=== PATIENT | female | born 1940 | race Caucasian/White ===

== ENCOUNTER 2016-11-09 15:00 | Inpatient (IN) | payer MEDICARE, OTHER ==
--- NOTE | ~2016-11-09 | CT4 ---
[facility] A Service of [facility] RADIOLOGY TEXT RESULTS PATIENT: BUCK ORTIZ LOCATION: A : 42 UNIT #: [id number] AGE: [address]: Feliz Morales MD SEX: F ORDER DR: [id number] [facility] [place] [address] [facility]. [place], [place] [address] [id number] I MR#: [id number] Acc #: [id number] NAME: BUCK ORTIZ. : 1940 SEX: F STUDY DATE/TIME: 11/10/2016 11:32 UNIT: [facility] ROOM: [facility] STUDY DESCRIPTION: CT Abd and Pelv Wo Cont Attending Physician: Feliz Morales M.D. Ordering Physician: Saw Knight M.D. Primary Care Physician: Arnel Crockett M.D. 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 TECHNIQUE Noncontrast CT of the abdomen and pelvis. This CT exam was performed with one or more of the following radiation dose reduction techniques: automatic exposure control, adjustment of mA and/or kV according to patient size, and iterative reconstruction. COMPARISON 10/13/2016. FINDINGS ABDOMEN WITHOUT CONTRAST: There is some linear scarring at the lung bases. Cirrhotic morphology of the liver. No liver mass on this unenhanced study. Spleen enlarged measuring 13.7 cm. Previous right nephrectomy. Left kidney, adrenal glands and pancreas are unremarkable. Previous cholecystectomy. Aneurysmal dilation of the infrarenal abdominal aorta up to 4.6 cm is unchanged. The bowel loops are non-dilated. There is an ostomy in the right mid abdomen. There are several bowel loops closely opposed to the undersurface of the anterior abdominal wall. There is some thickening seen in the region of the umbilical soft tissues. This is thickened but less so than on the prior. No drainable fluid collection is seen. No clear evidence for extension of oral contrast material into this region. [facility] A Service of [facility] RADIOLOGY TEXT RESULTS PATIENT: BUCK OTRIZ LOCATION: [facility] 206-01 : 42 UNIT #: [id number] AGE: [address]: Feliz Morales MD SEX: F ORDER DR: PELVIS WITHOUT CONTRAST: Previous hysterectomy. Previous cystectomy. No pelvic collection. No aggressive appearing bone lesion. IMPRESSION 1. Postoperative changes as above. 2. Several bowel loops closely opposed to the undersurface of the abdominal wall, with a persistent but slightly improved area of thickening in the periumbilical soft tissues. This may represent an area of thinner continuous fistula, but there is no drainable fluid collection or visible extension of oral contrast material into this region. 3. Other incidental findings detailed above. Dictated by... Reyes Antonio M.D. THIS IS AN ELECTRONICALLY VERIFIED REPORT Reyes Antonio M.D. at 11/12/2016 6:59 AM JOHNSON/vernell TD: 11/10/2016 16:52 JOB #: [id number] MEDICAL IMAGING REPORT COPY
--- NOTE | ~2016-11-09 | CO ---
Unit #: [id number] #: [id number] Patient: BUCK PERAZA [id number] [address] [place], [place] [address] [id number] I MR#: [id number] NAME: BUCK PERAZA. ROOM: 206 Age: 76 Sex: F Admission Date: 11/09/2016 : 1940 Attending Physician: Feliz Morales M.D. Primary Care Physician: Arnel Crockett M.D. CONSULTATION REPORT REASON FOR CONSULTATION Increased creatinine, increased potassium. HISTORY OF PRESENT ILLNESS Ms. Peraza is a 76-year-old female, who presents to hospital with complaint of fever. She has had dry mouth and thirst. She has had dizziness when up. She denies nonsteroidal use. 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 She had a subsequent cutaneous fistula and had repair. She developed recent drainage from the area of the repair and presented to outpatient Urology follow up. She had imaging at that time showing no left hydronephrosis. She subsequently developed fever along with increased drainage and is admitted now with concern about her cutaneous fistula. General Surgery consultation has been obtained. She was noted to have an increased potassium of 5.7. Her bicarbonate was 19. She has had similar findings in the past and has been prescribed bicarbonate as initial studies have suggested a type 4 type renal tubular acidosis with low pneumonia in production. At this time also she had elevated creatinine of 1.8. Creatinine had been 1.2 on 10/15/2016. She has had acute kidney injury in the past as high as 1.6 in early 09/2016 with recovery to 1.2 and 2.4 in 05/2015 with recovery to 1.2 later that month. HOME MEDICATIONS Reviewed and do not include any typical nephrotoxins. She claims that she has been following her low-potassium diet and that she has been taking her sodium bicarbonate. PAST MEDICAL HISTORY Notable for the above noted cancer with right nephroureterectomy for transitional cell cancer. She has COPD; hypothyroidism, on replacement; and reported diet-controlled diabetes. There was a history of aortic aneurysm. SOCIAL HISTORY Includes past cigarette smoking. She is now nonsmoker. FAMILY HISTORY Positive for incompletely described kidney injury in her mother, who did not require dialysis. REVIEW OF SYSTEMS Complete system review is negative or noncontributory except as noted Unit #: [id number] #: [id number] Patient: LennoxEBALEXA,BUCK M above. Specifically, there has been no vomiting, no hematemesis. No increased shortness of breath, orthopnea, no purulent cough, and no increased lower extremity swelling. PHYSICAL EXAMINATION GENERAL: Reveals a pleasant, alert, minimally uncomfortable appearing female, who appeared stated age. VITAL SIGNS: Blood pressure 102/53, heart rate 82, respirations 18, temperature 98.6. HEENT: Conjunctivae were pink. There was no bloody nasal discharge. Oral mucous membranes were dry. NECK: Reveals no increased jugular venous pressure. No thyromegaly. Cervical and supraclavicular adenopathy was unremarkable. LUNGS: Reveal diminished air movement, but were clear. HEART: Revealed no rub or S3. ABDOMEN: Soft, nontender. She had an ileal diversion draining clear yellow urine on the right side. The current fistula requiring additional evaluation and attention. : Included no CVA tenderness or bladder distention, was of course absent. EXTREMITIES: Revealed no increased pretibial edema. No unusual muscle tenderness. DIAGNOSTIC STUDIES LABORATORY RESULTS: Included a white count of 4700, hemoglobin 11.9, and platelet count 179,000. BUN was 28, creatinine 1.8, potassium 5.7, CO2 of 19, calcium 8.7; after bicarbonate treatment overnight, potassium was 4.4 today. ASSESSMENT 1. 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 2. Acute kidney injury. She appears volume depleted possibly from additional losses and possibly not taking p.o. well. She denies nonsteroidal use. Review of home medicines discloses no typical nephrotoxins. Urine, well-appearing dirty from ostomy in that is not reliable for diagnosis. Noted is reported use of Macrobid; would avoid that in future for GFR less than 60. 3. Chronic kidney disease, status post right nephrectomy for cancer. 4. Ileal conduit. 5. Hyperkalemia. 6. 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 PLAN Current recs with IV fluids for volume expansion, bicarbonate, and dietary potassium restriction. CT is planned; if that does not adequately exclude incomplete obstruction and creatinine is not moving to normal with volume resuscitation, we will request additional imaging with kidney ultrasound. Thank you for allowing me to see Ms. Peraza. Dictated by... Ely Flores/modl TD: 11/10/2016 19:09 Unit #: [id number] #: [id number] Patient: BUCK PERAZA JOB #: [id number] CONSULTATION REPORT X Rolando Starks MD X CONSULTATION REPORT
--- NOTE | ~2016-11-09 | HP ---
Unit #: [id number] #: [id number] Patient: BUCK PERAZA [id number] [address] [place], [place] [address] [id number] I MR#: [id number] NAME: BUCK PERAZA. ROOM: 206 Age: 76 Sex: F Admission Date: 11/09/2016 : 1940 Attending Physician: Feliz Morales M.D. Primary Care Physician: Arnel Crockett M.D. HISTORY AND PHYSICAL ADMITTING DIAGNOSES 1. Fever status post simple cystectomy and ileal conduit. 2. Possible enterocutaneous fistula. HISTORY OF PRESENT ILLNESS Ms. Peraza is a pleasant 76-year-old female who originally underwent a right nephroureterectomy for upper tract transitional cell carcinoma. She subsequently developed a vesicovaginal fistula. She underwent a transvaginal repair with a Martius flap in February of 2016, but she had a recurrent fistula. She subsequently underwent a simple cystectomy and ileal conduit urinary diversion in September of 2015. Postoperatively she did develop a delayed wound infection, which was managed by wet-to-dry dressings. She presented to my office last week with increased drainage from her wound. She underwent a CT of the abdomen and pelvis in my office on 11/07/2016, which shows no left hydronephrosis, a lower abdominal ventral hernia, which is nonobstructing, including loops of small bowel. She presented to the office today with a 2- to 3-day history of fever and malaise. On exam of her wound, there is persistent output, and I am concerned about a fistula, as well. She, also, has had a cough. PAST MEDICAL HISTORY 1. Right upper tract transitional cell carcinoma. 2. Asthma. 3. Osteoarthritis. 4. Abdominal aortic aneurysm. 5. Hypothyroidism. 6. Hyperlipidemia. 7. Type 2 diabetes mellitus. 8. Nonalcoholic steatohepatitis. PAST SURGICAL HISTORY 1. Simple cystectomy, ileal conduit. 2. Right nephroureterectomy. 3. Vesicovaginal fistula repair with Martius flap. 4. Right ureteroscopy. 5. Cholecystectomy. 6. Partial thyroidectomy. 7. Oophorectomy. 8. Appendectomy. 9. Liver biopsy. 10. EGD. MEDICATIONS Documented in the chart. Unit #: [id number] #: [id number] Patient: UEBBUCK LIU M ALLERGIES Keflex, latex, penicillin and sulfa. PHYSICAL EXAMINATION VITAL SIGNS: Temperature is 102.1, blood pressure in my office 89/63. HEENT: Normocephalic, atraumatic. LUNGS: The patient is breathing comfortably. ABDOMEN: Soft, nontender, nondistended. Her urostomy is pink, patent and productive with clear urine. Her lower midline incision has a very small opening with green drainage and mucosal tissue, which I am concerned may be consistent with an enterocutaneous fistula. EXTREMITIES: No clubbing, cyanosis or edema. ASSESSMENT AND PLAN Fever. She will be admitted. Blood and urine cultures will be obtained. Will start her on IV antibiotics. We will check a chest x-ray. We will consult general surgery to evaluate for possible fistula. We appreciate the opportunity to participate in her care. Dictated by Ely Linder/melissa TD: 11/09/2016 15:02 JOB #: [id number] HISTORY AND PHYSICAL X Feliz Morales MD X HISTORY AND PHYSICAL
--- NOTE | ~2016-11-09 | CR8 ---
[facility] A Service of [facility] RADIOLOGY TEXT RESULTS PATIENT: BUCK ORTIZ LOCATION: C2A : 42 UNIT #: [id number] AGE: [address]: Feliz Morales MD SEX: F ORDER DR: [id number] [facility] [address] [facility]. [place], [place] [address] [id number] I MR#: [id number] Acc #: [id number] NAME: BUKC ORTIZ. : 1940 SEX: F STUDY DATE/TIME: 11/12/2016 9:03 UNIT: [facility] ROOM: [facility] STUDY DESCRIPTION: CR Abscess Fist Sin Tract SI Attending Physician: Feliz Morales M.D. Ordering Physician: Feliz Morales M.D. Primary Care Physician: Arnel Crockett M.D. MEDICAL IMAGING REPORT This report is preliminary unless electronic signature is present EXAM Sinus tract injection 11/12 INDICATIONS Draining midline abdominal wound. Prior history of multiple abdominal surgeries. History of renal cell cancer. PROCEDURE The small sinus tract in the midline of the anterior pelvis was cannulated using a 4-Dominican catheter. It was then injected with Isovue-300 contrast. The catheter could be advanced approximately 6 cm deep to the skin. Contrast injection did fill a small slightly irregular cavity around the catheter but did not appear to spill out into the pelvis proper or the fill out any bowel loops. Attempts at injecting additional contrast resulted in drainage from the skin. IMPRESSION Injection of the sinus tract shows filling of a cavity about 6 cm deep. It is fairly small and slightly irregular. It does not appear to communicate with bowel at this time and there is no spillage of contrast into the pelvis proper. ADDENDUM Fluoro time is 1.7 minutes. Five images were obtained. Dictated by... Rolando Stephenson Jr., M.D. THIS IS AN ELECTRONICALLY VERIFIED REPORT Rolando Stephenson Jr., M.D. at 11/12/2016 12:30 PM RLK/valeria TD: 11/12/2016 12:20 [facility] A Service of [facility] RADIOLOGY TEXT RESULTS PATIENT: BCUK ORTIZ LOCATION: [facility] 206-01 : 42 UNIT #: [id number] AGE: [address]: Feliz Morales MD SEX: F ORDER DR: JOB #: [id number] MEDICAL IMAGING REPORT COPY
--- NOTE | ~2016-11-09 | CO ---
Unit #: [id number] #: [id number] Patient: BUCK ORTIZ [id number] [address] [place], [place] [address] [id number] I MR#: [id number] NAME: BUCK ORTIZ ROOM: 206 Age: 76 Sex: F Admission Date: 11/09/2016 : 1940 Attending Physician: Feliz Morales M.D. Primary Care Physician: Arnel Crockett M.D. Consultation Date: 11/10/2016 CONSULTATION REPORT BRIEF HISTORY The patient is a 76-year-old lady with a complex surgical history, who underwent right nephroureterectomy for upper tract transitional cell carcinoma. Subsequently, developed a vesicovaginal fistula, underwent transvaginal repair back in February,. Underwent simple cystectomy in September,, with ileal conduit diversion. The second week after surgery, she developed drainage in the inferior portion of the wound. This was treated with wet-to-dry dressings, but subsequently debrided again. She now presents with 2 to 3 day history of fevers and persistent bilious type drainage from her lower abdominal wound. PAST MEDICAL HISTORY Hypothyroidism, hyperlipidemia, diabetes, asthma. PAST SURGICAL HISTORY As mentioned, in addition to a cholecystectomy, oophorectomy, appendectomy. MEDICATIONS Please see medication list. ALLERGIES Keflex, latex, penicillin, sulfa. REVIEW OF SYSTEMS No cardiopulmonary complaints at this time. Else, 10 systems reviewed and negative. PHYSICAL EXAMINATION GENERAL: She is awake and alert, in no distress. VITAL SIGNS: Current temperature is 100.1. HEENT: Unremarkable. NECK: Supple. No JVD. Trachea midline. LUNGS: Clear to auscultation. Bilateral breath sounds symmetric. CARDIOVASCULAR: Regular rate and rhythm. ABDOMEN: Soft. It is minimally tender. There was no rebound. No masses. She does have bilious drainage at the inferior portion of her wound with a punctate opening. Ileal conduit appears to be in good order. DIAGNOSTIC STUDIES LABORATORY RESULTS: Show white count of 4.7 and hemoglobin of 11.9. 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 Unit #: [id number] #: [id number] Patient: BUCK ORTIZ PLAN This is complex situation. We will plan for further evaluation of location. We will try CT scan with oral contrast and then consider fistulogram. We may place ostomy appliance. Dictated by... Ely Cullen/obi TD: 11/10/2016 09:32 JOB #: [id number] CONSULTATION REPORT X Saw Knight MD X CONSULTATION REPORT
--- NOTE | ~2016-11-09 | CR63 ---
[facility] A Service of [facility] RADIOLOGY TEXT RESULTS PATIENT: BUCK ORTIZ LOCATION: A : 42 UNIT #: [id number] AGE: [address]: Feliz Morales MD SEX: F ORDER DR: [id number] [facility] [address] [facility]. [place], [place] [address] [id number] I MR#: [id number] Acc #: [id number] NAME: BUCK ORTIZ. : 1940 SEX: F STUDY DATE/TIME: 11/09/2016 16:37 UNIT: [facility] ROOM: [facility][note 3] STUDY DESCRIPTION: CR Chest 2 View Attending Physician: Feliz Morales M.D. Ordering Physician: Feliz Morales M.D. Primary Care Physician: Arnel Crockett M.D. MEDICAL IMAGING REPORT This report is preliminary unless electronic signature is present EXAM PA and lateral chest performed on 11/09/2016 HISTORY 76-year-old female with fever, cough and weakness for 2 days. FINDINGS In comparison to the previous exam of 09/21/2016 at 1203 hours, there has been interval removal of the enteric tube. The lungs demonstrate bilateral pulmonary emphysema but no acute pulmonary infiltrate or cardiac enlargement is present. Old rib fracture again identified on the right. IMPRESSION No acute pulmonary disease and no cardiac enlargement. Dictated by... Rich Abdalla M.D. THIS IS AN ELECTRONICALLY VERIFIED REPORT Rich Abdalla M.D. at 11/12/2016 7:02 PM RP/pcl TD: 11/09/2016 22:35 JOB #: [id number] MEDICAL IMAGING REPORT COPY
--- NOTE | ~2016-11-09 | DS ---
Unit #: [id number] #: [id number] Patient: BUCK PERAZA [id number] [address] [place], [place] [address] [id number] I MR#: [id number] NAME: BUCK PERAZA. ROOM: 206 Age: 76 Sex: F Admission Date: 11/09/2016 : 1940 Discharge Date: 11/15/2016 Attending Physician: Feliz Morales M.D. Primary Care Physician: Arnel Crockett M.D. DISCHARGE SUMMARY ADMITTING DIAGNOSES 1. Fever. 2. Wound infection. DISCHARGE DIAGNOSES 1. Fever. 2. Wound infection. 3. Urinary tract infection. 4. Influenza A. CONSULTANTS Dr. Arnel Crockett. Dr. Saw Knight. Dr. Rolando Starks. HISTORY OF PRESENT ILLNESS For full details please see my admitting history and physical. Briefly, Ms. Peraza is a pleasant 76-year-old female who originally underwent a right nephroureterectomy for upper tract transitional cell carcinoma. She subsequently developed vesicovaginal fistula which was repaired originally with a transvaginal repair with a Martius flap in 02/2016, but she had a recurrent fistula. She underwent ileal conduit urinary diversion in 09/2015. Postoperative she developed a delayed wound infection which was managed by wet-to-dry dressings, but she presented to the office on the day of admission with a fever to 101 and increased output from her wound. She was admitted for further management. HOSPITAL COURSE The patient was admitted. She was placed on IV fluids and IV antibiotics. Her urine culture ultimately grew out Enterobacter cloacae. She was treated with vancomycin because she originally had gram positive rods in her blood, which ultimately turned out be a contaminant, as well as tobramycin. Her Enterobacter cloacae was sensitive to tobramycin. Due to her multiple allergies, there were really no appropriate p.o. antibiotics, so she has continued on IV tobramycin until the day of discharge. Interestingly she was also positive for influenza A. Her chest x-ray was negative. She was seen by the general surgery service and her wound was evaluated for a possible fistula, but she underwent an injection of the sinus tract and this did not show communication with the (1) and was thought to not be consistent with a fistula. CT of the abdomen and pelvis showed no hydronephrosis and it showed a hernia, but no free air and no drainable fluid collection. The patient improved on IV fluids, antibiotics and wound care. At this time we will stop all antibiotics. She will be discharged home. Unit #: [id number] #: [id number] Patient: BUCK PERAZA DISCHARGE INSTRUCTIONS 1. Home health is to see for wound care. 2. She is to have t.i.d. dressings with 1/4 strength Dakin's packing strips to her abdominal wound. 3. She is to have routine urostomy care. DISCHARGE MEDICATIONS 1. Advair 100/50 Diskus. Per her admitting prescription. 2. Sodium bicarbonate 650 mg p.o. b.i.d. 3. Zofran 4 mg p.o. q.8 h. p.r.n. 4. Pravachol 40 mg daily. 5. Iron sulfate 324 mg daily. 6. Fosamax 70 mg weekly. 7. Chilcoot 7.5 mg 1-2 p.o. q.6 h. p.r.n. 8. Levothyroxine 50 mcg daily. FOLLOWUP 1. She will follow up with Dr. Phelps in the wound clinic in one week. 2. She will follow up with me in one week. 3. She will follow up with Dr. Crockett in two to three weeks. 4. She will follow up with any concerns, any temperature greater than 101, inability to tolerate fluids, pain not controlled p.o. pain medications, chest pain, shortness of breath or any other concerns. Dictated by... Ely Linder/yordan TD: 11/15/2016 08:52 JOB #: [id number] DISCHARGE SUMMARY X Feliz Morales MD X DISCHARGE SUMMARY
--- NOTE | ~2016-11-09 | CO ---
Unit #: [id number] #: [id number] Patient: BUCK ORTIZ [id number] [address] [place], [place] [address] [id number] MR#: [id number] NAME: BUCK ORTIZ ROOM: 206 Age: 76 Sex: F Admission Date: 11/09/2016 : 1940 Attending Physician: Feliz Morales M.D. Primary Care Physician: Arnel Crockett M.D. Requesting Physician: Feliz Morales M.D. 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 Dr. Morales did a recent CT scan through the office which showed no left hydronephrosis. There was a lower abdominal ventral hernia, which is nonobstructing, including loops of small bowel. She then presented back to the office with increased discharge from her wound, cough and fever of up to 102 degrees along with malaise and was directly admitted for further evaluation. He has ordered a chest x-ray, CBC, BMP, blood cultures, urine culture and sensitivity and placed the patient on meropenem as well as Lovenox for DVT prophylaxis and IV fluids. He has also consulted [facility] for a possible fistula, enterocutaneous obviously. At this point the patient denies having any diarrhea. She has cough productive of yellowish phlegm but no significant otalgia, sore throat. She has mild headache when her temperature goes high and has been somewhat out of it, with anorexia but no nausea or vomiting. Her urine in her ileal conduit looks clear grossly by examination. She has no other complaints at this time. ALLERGIES Keflex, Latex, penicillin and sulfa drugs, Cipro, Naprosyn, Vimovo, latex and IV dye. MEDICATIONS Her medications prior to admission: 1. Accident 7.5/325 one q.6 h. p.r.n. 2. Ferrous gluconate 324 mg daily. 3. Advair 150 one puff q.12 h. 4. Levothyroxine 50 mcg daily. 5. Sodium bicarbonate 650 mg two tabs b.i.d. 6. Fosamax 70 mg weekly. 7. Zofran 4 mg q.8 h. p.r.n. 8. Macrobid 100 mg p.o. b.i.d. 9. Pravachol 40 mg p.o. daily. PAST SURGICAL HISTORY 1. Cholecystectomy. 2. Partial thyroidectomy. Unit #: [id number] #: [id number] Patient: BUCK ORTIZ 3. Hysterectomy. 4. Oophorectomy. 5. Exploratory laparotomy with appendectomy. 6. Liver biopsy. 7. Colonoscopy for polyps. 8. EGD with dilation. 9. Bilateral cataract surgery. 10. Right ureteronephrectomy. 11. Radical cystectomy with ileal conduit. PAST MEDICAL HISTORY 1. A 3.8 cm abdominal aortic aneurysm. 2. GE reflux disease. 3. Asthma. 4. Colonic polyps. 5. Nephrolithiasis. 6. Hypothyroidism. 7. Osteoarthritis. 8. Osteoporosis. 9. Hyperlipidemia. 10. Diet controlled type 2 diabetes mellitus. 11. Nonalcoholic cirrhosis. 12. Hypothyroidism. 13. Hyperlipidemia. 14. Type 2 diabetes mellitus. 15. Nonalcoholic cirrhosis. SOCIAL HISTORY Nonsmoker, nondrinker, no street drug use, retired. PHYSICAL EXAMINATION GENERAL: Appears acutely ill. Sister is at the bedside. VITAL SIGNS: Temperature is 100.4, pulse 63, respirations 19, blood pressure 101/53. HEENT: Unremarkable. NECK: Supple, without JVD, bruits, adenopathy or thyromegaly. CHEST: Clear to auscultation HEART: Has a regular rate and rhythm, without any murmurs, gallops or rubs. ABDOMEN: Soft, nontender and nondistended, with positive bowel sounds. She has clear urine in what appears to be a well-functioning and pink ileal conduit in the right lower quadrant. She has a small open area where the umbilicus would be but there is no significant surrounding erythema and discharge was unable to be expressed and there is no palpable abscess in the area. DIAGNOSTIC STUDIES LABORATORY: Lab work is currently pending IMAGING: Her chest x-ray is currently pending. IMPRESSION 1. Fever of unknown origin. 2. Cough. 3. Possible enterocutaneous fistula. 4. Status post right nephrectomy, ureterectomy, cystectomy with ileal conduit. 5. Nonalcoholic cirrhosis. 6. Type 2 diabetes mellitus. Unit #: [id number] #: [id number] Patient: BUCK ORTIZ 7. Asthma. 8. Chronic kidney disease stage 3. 9. Abdominal aortic aneurysm. 10. Gastroesophageal reflux disease. 11. Colonic polyps. 12. Osteoporosis. 13. Osteoarthritis. 14. Hyperlipidemia. 15. Status post cholecystectomy. 16. Status post partial thyroidectomy. 17. Status post hysterectomy. 18. Status post appendectomy. 19. Status post oophorectomy. 20. Status post bilateral cataract surgeries. PLAN 1. Continue meropenem, Lovenox, IV fluids. 2. Follow up on chest x-ray. 3. Will also check a flu swab. 4. Follow up on urine culture, blood culture, CBC, BMP. 5. Further evaluation pending the results of the above. 6. Again [facility] is to consult. Thank you for the consultation. Dictated by... Arnel Crockett M.D. DAVIS/catherine TD: 11/09/2016 19:12 JOB #: [id number] CONSULTATION REPORT X Arnel Crockett MD X CONSULTATION REPORT
[~2016-11-09 15:00] MED LIST: ADVAIR 100-501 EAC1 INH; ADVAIR 100-501 EACH IH; ADVAIR INH; AL-MAG HYDROX-S30 M1 PO; ALBUTEROL MININEB NEB; ALBUTEROL17 GM INH; ALENDRONATE SOD70 MG PO; ANTACID650 MG PO; ASPIRIN EC81 M1 PO; ASPIRIN PO; ASPIRIN81 M1 PO; ASPIRIN81 M2 PO; AZITHROMYCIN250 MG PO; CALCIUM 500 + D1 TAB PO; CIPRO PO; DITROPAN5 MG PO; DOXYCYCLINE HY100 M3 PO; DULCOLAX5 MG PO; FERROUS GL324 ( 36 ) PO; FLEXERIL PO; FOSAMAX PO; FOSAMAX70 MG PO; HYDROCODON-ACE1 EAC9 PO; HYDROCODONE-A1 UDTA4 PO; LEVAQUIN750 MG PO; LEVOTHYROXINE112 MCG PO; LEVOTHYROXINE50 MC1 PO; LEVOTHYROXINE75 MCG PO; LEVOTHYROXINE88 MCG PO; LIDODERM30 EA TOP; LIPITOR PO; MACROBID100 M1 PO; MEDROL PO; MEDROL4 MG/DOSE-; NAPROXEN PO; NORCO1 TAB 10/3 PO; OMEPRAZOLE40 MG PO; OTC STOOL SOFTENER; OXYCODONE; PEPCID AC20 M2 PO; PERCOCET PO; PLAQUENIL200 MG PO; PRAVASTATIN SOD40 MG PO; PREDNISONE1 MG PO; PRILOSEC40 MG PO; SERTRALINE HCL100 MG PO; SIMETHICONE; SODIUM BICARBO650 MG PO; SYNTHROID PO; SYNTHROID0.05 MG PO; VICODIN PO; VIMOVO DR 500-1 EACH PO; VIT E PO; VITAMIN E400 UNI2 PO; VOLTAREN50 MG PO; ZITHROMAX PO; ZOCOR PO; ZOFRAN ODT4 MG PO; ZOFRAN PO; ZOLOFT PO; [UNRECOGNIZED DRUG - OTHER]; [UNRECOGNIZED DRUG - REMARK]
[2016-11-09] MEDS ORDERED: PRAVACHOL PO (16:36)
[2016-11-09 17:50] LABS: HEMOGLOBIN 12.8 gm/dL (12.0-16.0); MEAN CORPUSCULAR HEMOGLOBIN 28.3 PG (28-34); MEAN CORPUSCULAR HGB CONC 32.9 g/dL (30-36); MEAN PLATELET VOLUME 7.7 FL (6.5-11.5); RED BLOOD COUNT 4.53 X10e (3.90-5.30); RED CELL DISTRIBUTION WIDTH 16.1 % (11.0-15.5); WHITE BLOOD COUNT 5.7 X10e3 (4.0-10.5)
[2016-11-09 18:01] LABS: URINE APPEARANCE CLOUDY; URINE BILIRUBIN NEG (NEG); URINE BLOOD 2+ (NEG); URINE COLOR YELLOW; URINE GLUCOSE NEG (NEG); URINE KETONE NEG (NEG); URINE LEUKOCYTE ESTERASE 3+ (NEG); URINE NITRATE POS (NEG); URINE PROTEIN NEG (NEG); URINE SPECIFIC GRAVITY 1.011 (1.003-1.035); URINE UROBILINOGEN 0.2 MG/DL (NEG)
[2016-11-09 18:03] LABS: URINE BACTERIA AUWI 4+ (NEGATIVE); URINE SQUAMOUS EPITHELIAL CELL NONE SEEN /[HPF]; UWBCS1 AUWI 200-300 (0-5)
[2016-11-09 18:18] LABS: BUN/CREATININE RATIO 15.55; CALCIUM SERUM 8.7 mg/dL (8.4-10.2); CREATININE SERUM 1.8 mg/dL (0.6-1.4); GLOM FILT RATE Estimated 29.2 mL/min (>60)
[2016-11-09 18:24] LABS: POTASSIUM 5.7 mmol/L (3.5-5.1)
[2016-11-09 19:03] LABS: INFLUENZA A POS (NEG); INFLUENZA B NEG (NEG)
[2016-11-10 02:37] LABS: BUN/CREATININE RATIO 14.44; CREATININE SERUM 1.8 mg/dL (0.6-1.4); GLOM FILT RATE Estimated 29.2 mL/min (>60); POTASSIUM 4.4 mmol/L (3.5-5.1)
[2016-11-10 06:26] LABS: HEMATOCRIT 35.7 % (35.0-45.0); HEMOGLOBIN 11.9 gm/dL (12.0-16.0); MEAN CELL VOLUME 84.5 FL (83-96); MEAN CORPUSCULAR HEMOGLOBIN 28.2 PG (28-34); MEAN CORPUSCULAR HGB CONC 33.4 g/dL (30-36); MEAN PLATELET VOLUME 7.7 FL (6.5-11.5); RED BLOOD COUNT 4.22 X10e (3.90-5.30); RED CELL DISTRIBUTION WIDTH 15.9 % (11.0-15.5); WHITE BLOOD COUNT 4.7 X10e3 (4.0-10.5)
[2016-11-11 07:49] LABS: HEMATOCRIT 32.3 % (35.0-45.0); HEMOGLOBIN 10.6 gm/dL (12.0-16.0); MEAN CORPUSCULAR HGB CONC 32.9 g/dL (30-36); MEAN PLATELET VOLUME 7.5 FL (6.5-11.5); RED BLOOD COUNT 3.81 X10e (3.90-5.30); RED CELL DISTRIBUTION WIDTH 15.9 % (11.0-15.5); WHITE BLOOD COUNT 3.6 X10e3 (4.0-10.5)
[2016-11-11 08:15] LABS: ALBUMIN SERUM 2.8 g/dL (3.5-5.0); BILIRUBIN,TOTAL 0.5 mg/dL (0.2-2.0); BUN/CREATININE RATIO 16.66; CALCIUM SERUM 7.1 mg/dL (8.4-10.2); CREATININE SERUM 1.2 mg/dL (0.6-1.4); GLOM FILT RATE Estimated 46.7 mL/min (>60); MAGNESIUM 1.6 mg/dL (1.6-3.0); POTASSIUM 4.2 mmol/L (3.5-5.1)
[2016-11-12 04:20] LABS: HEMATOCRIT 30.3 % (35.0-45.0); MEAN CELL VOLUME 84.8 FL (83-96); MEAN CORPUSCULAR HGB CONC 33.1 g/dL (30-36); MEAN PLATELET VOLUME 7.5 FL (6.5-11.5); RED BLOOD COUNT 3.58 X10e (3.90-5.30); RED CELL DISTRIBUTION WIDTH 15.8 % (11.0-15.5); WHITE BLOOD COUNT 3.2 X10e3 (4.0-10.5)
[2016-11-12 04:34] LABS: CALCIUM SERUM 6.7 mg/dL (8.4-10.2); GLOM FILT RATE Estimated 57.6 mL/min (>60); MAGNESIUM 1.5 mg/dL (1.6-3.0); POTASSIUM 3.8 mmol/L (3.5-5.1)
[2016-11-13 05:45] LABS: HEMATOCRIT 31.7 % (35.0-45.0); HEMOGLOBIN 10.5 gm/dL (12.0-16.0); MEAN CELL VOLUME 86.1 FL (83-96); MEAN CORPUSCULAR HEMOGLOBIN 28.4 PG (28-34); MEAN PLATELET VOLUME 7.9 FL (6.5-11.5); RED BLOOD COUNT 3.69 X10e (3.90-5.30); RED CELL DISTRIBUTION WIDTH 16.1 % (11.0-15.5); WHITE BLOOD COUNT 4.2 X10e3 (4.0-10.5)
[2016-11-13 06:27] LABS: ALBUMIN SERUM 2.7 g/dL (3.5-5.0); BILIRUBIN,TOTAL 0.5 mg/dL (0.2-2.0); GLOM FILT RATE Estimated 57.6 mL/min (>60); MAGNESIUM 1.7 mg/dL (1.6-3.0); POTASSIUM 4.4 mmol/L (3.5-5.1); PROTEIN TOTAL SERUM 5.9 g/dL (6.0-8.3)
[2016-11-14 06:24] LABS: HEMATOCRIT 33.8 % (35.0-45.0); MEAN CELL VOLUME 84.6 FL (83-96); MEAN CORPUSCULAR HEMOGLOBIN 27.6 PG (28-34); MEAN CORPUSCULAR HGB CONC 32.6 g/dL (30-36); MEAN PLATELET VOLUME 7.8 FL (6.5-11.5); RED CELL DISTRIBUTION WIDTH 16.5 % (11.0-15.5); WHITE BLOOD COUNT 3.8 X10e3 (4.0-10.5)
[2016-11-14 07:06] LABS: BUN/CREATININE RATIO 6.66; CALCIUM SERUM 8.2 mg/dL (8.4-10.2); CREATININE SERUM 1.2 mg/dL (0.6-1.4); GLOM FILT RATE Estimated 46.7 mL/min (>60); MAGNESIUM 1.6 mg/dL (1.6-3.0); POTASSIUM 4.3 mmol/L (3.5-5.1)
[2016-11-15] MEDS ORDERED: SODIUM BICARBO650 MG PO (10:30)
[2016-11-15] MEDS ORDERED: ZOFRAN ODT4 MG PO (10:30)
[2016-11-15] MEDS ORDERED: HYDROCODON-ACE1 EAC9 PO (10:30)
[2016-11-15] MEDS ORDERED: DAKIN'S473 M1 MC (10:31)
[2016-11-15] MEDS ORDERED: D-20002000 UNIT PO (10:32)
== END 2016-11-15 11:35 | disposition home health service (06) | DRG 863 ==
LOC: C2A 15:00
PROVIDERS: Internal Medicine; Surgery; Urology
PROC: BW11YZZ Fluoroscopy of Abdomen and Pelvis using Other Contrast (ICD-10-PCS; principal; 2016-11-12)
DX: T81.4XXA Infection following a procedure, initial encounter (principal); N17.9 Acute kidney failure, unspecified; E87.2 Acidosis; E11.22 Type 2 diabetes mellitus with diabetic chronic kidney disease; N39.0 Urinary tract infection, site not specified; I12.9 Hypertensive chronic kidney disease with stage 1 through stage 4 chronic kidney disease, or unspecified chronic kidney disease; N18.3 Chronic kidney disease, stage 3 (moderate); J11.1 Influenza due to unidentified influenza virus with other respiratory manifestations; B96.89 Other specified bacterial agents as the cause of diseases classified elsewhere; E03.9 Hypothyroidism, unspecified; E78.5 Hyperlipidemia, unspecified; J45.909 Unspecified asthma, uncomplicated; Z88.1 Allergy status to other antibiotic agents; Z88.0 Allergy status to penicillin; Z88.2 Allergy status to sulfonamides; Z91.040 Latex allergy status; Z85.54 Personal history of malignant neoplasm of ureter; K74.60 Unspecified cirrhosis of liver; I71.4 Abdominal aortic aneurysm, without rupture; K21.0 Gastro-esophageal reflux disease with esophagitis; Z86.010 Personal history of colon polyps; M81.0 Age-related osteoporosis without current pathological fracture; M19.90 Unspecified osteoarthritis, unspecified site; E87.5 Hyperkalemia
CPT/HCPCS: 71020; 74176; 76080; 80048; 80053; 80200; 81003; 82947; 83735; 85027; 87040; 87086; 87088; 87186; 87804; 94640; 94664; 94760; C1725; J0610; J1650; J1940; J2185; J2405; J3260; J3370; J3475; Q9967

== ENCOUNTER 2017-02-02 18:22 | Emergency (ER) | payer MEDICARE, OTHER ==
[~2017-02-02 18:22] MED LIST changes: +D-20002000 UNIT PO; +DAKIN'S473 M1 MC; +PRAVACHOL PO
[2017-02-02 19:41] LABS: BASOPHIL% 0.6 % (0-2.5); EOSINOPHIL# 0.4 X10e3 (0-0.7); EOSINOPHIL% 5.2 % (0.0-7.0); HEMATOCRIT 37.2 % (35.0-45.0); HEMOGLOBIN 12.1 gm/dL (12.0-16.0); LYMPHOCYTE# 1.6 X10e3 (1.0-3.5); LYMPHOCYTE% 22.8 % (17.0-45.0); MEAN CELL VOLUME 82.7 FL (83-96); MEAN CORPUSCULAR HEMOGLOBIN 26.9 PG (28-34); MEAN CORPUSCULAR HGB CONC 32.6 g/dL (30-36); MEAN PLATELET VOLUME 7.4 FL (6.5-11.5); MONOCYTE# 0.5 X10e3 (0-1.0); MONOCYTE% 7.1 % (3.0-12.0); NEUTROPHIL# 4.4 X10e3 (1.5-7.1); NEUTROPHIL% 64.3 % (40-75); PLATELET COUNT 273 X10e3 (140-420); RED CELL DISTRIBUTION WIDTH 15.9 % (11.0-15.5); WHITE BLOOD COUNT 6.9 X10e3 (4.0-10.5)
[2017-02-02 19:43] LABS: DIFF IND NO
[2017-02-02 19:58] LABS: INR 1.1; PARTIAL THROMBOPLASTIN TIME 26.1 SECONDS (23.5-31.3); PROTHROMBIN TIME (PATIENT) 11.2 SECONDS (9.6-11.5)
[2017-02-02 20:12] LABS: BUN/CREATININE RATIO 23.33; CREATININE SERUM 1.2 mg/dL (0.6-1.4); GLOM FILT RATE Estimated 44.2 mL/min (>60); POTASSIUM 4.7 mmol/L (3.5-5.1)
== END 2017-02-02 21:32 | disposition home or self-care (01) ==
LOC: CED 18:22
PROVIDERS: Emergency Medicine
DX: L98.499 Non-pressure chronic ulcer of skin of other sites with unspecified severity (principal); J44.9 Chronic obstructive pulmonary disease, unspecified; Z98.890 Other specified postprocedural states; Z90.49 Acquired absence of other specified parts of digestive tract; Z90.710 Acquired absence of both cervix and uterus; Z88.2 Allergy status to sulfonamides; Z88.1 Allergy status to other antibiotic agents; Z91.040 Latex allergy status; Z91.041 Radiographic dye allergy status; Z91.018 Allergy to other foods
CPT/HCPCS: 36415; 80048; 85025; 85610; 85730; 99283

== ENCOUNTER 2017-02-03 20:53 | Emergency (ER) | payer MEDICARE, OTHER | END 2017-02-04 02:20 | disposition home or self-care (01) | LOC: CED 20:53 | DX: K27.4 Chronic or unspecified peptic ulcer, site unspecified, with hemorrhage (principal); Z91.040 Latex allergy status; Z88.2 Allergy status to sulfonamides; Z91.041 Radiographic dye allergy status; Z88.8 Allergy status to other drugs, medicaments and biological substances | CPT/HCPCS: 99283 ==

== ENCOUNTER 2017-03-02 15:59 | Emergency (ER) | payer MEDICARE, OTHER ==
[2017-03-02 16:35] LABS: URINE SOURCE CLEAN CATCH
[2017-03-02 16:40] LABS: URINE APPEARANCE CLOUDY; URINE BILIRUBIN NEG (NEG); URINE BLOOD 3+ (NEG); URINE COLOR ORANGE; URINE GLUCOSE NEG (NEG); URINE KETONE NEG (NEG); URINE LEUKOCYTE ESTERASE 3+ (NEG); URINE NITRATE POS (NEG); URINE PH 8.5 (5-8); URINE PROTEIN 1+ (NEG)
[2017-03-02 16:42] LABS: CULTURE INDICATED? YES; URBCS1 AUWI INNUM /[HPF] (0-2); URINE BACTERIA AUWI 4+ (NEGATIVE); URINE SQUAMOUS EPITHELIAL CELL NONE SEEN /[HPF]; UWBCS1 AUWI 100-200 (0-5)
== END 2017-03-02 17:40 | disposition home or self-care (01) ==
LOC: CED 15:59
PROVIDERS: Emergency Medicine
DX: N30.00 Acute cystitis without hematuria (principal); L98.499 Non-pressure chronic ulcer of skin of other sites with unspecified severity; J44.9 Chronic obstructive pulmonary disease, unspecified; F17.210 Nicotine dependence, cigarettes, uncomplicated; Z90.49 Acquired absence of other specified parts of digestive tract; Z88.1 Allergy status to other antibiotic agents; Z88.2 Allergy status to sulfonamides; Z88.8 Allergy status to other drugs, medicaments and biological substances
CPT/HCPCS: 81003; 87086; 87088; 87186; 99283

== ENCOUNTER → 2017-04-17 | Outpatient (CLI) | payer MEDICARE, OTHER ==
[2017-04-17 11:03] LABS: BASOPHIL# 0.1 X10e3 (0-0.3); DIFF IND NO; EOSINOPHIL# 0.4 X10e3 (0-0.7); EOSINOPHIL% 6.5 % (0.0-7.0); HEMATOCRIT 39.7 % (35.0-45.0); LYMPHOCYTE# 1.6 X10e3 (1.0-3.5); LYMPHOCYTE% 26.5 % (17.0-45.0); MEAN CELL VOLUME 85.3 FL (83-96); MEAN CORPUSCULAR HGB CONC 32.8 g/dL (30-36); MEAN PLATELET VOLUME 7.1 FL (6.5-11.5); MONOCYTE# 0.4 X10e3 (0-1.0); MONOCYTE% 5.9 % (3.0-12.0); NEUTROPHIL# 3.7 X10e3 (1.5-7.1); NEUTROPHIL% 60.1 % (40-75); PLATELET COUNT 286 X10e3 (140-420); RED BLOOD COUNT 4.65 X10e (3.90-5.30); RED CELL DISTRIBUTION WIDTH 14.7 % (11.0-15.5); WHITE BLOOD COUNT 6.2 X10e3 (4.0-10.5)
[2017-04-17 11:53] LABS: BUN/CREATININE RATIO 18.46; CALCIUM SERUM 9.3 mg/dL (8.4-10.2); CREATININE SERUM 1.3 mg/dL (0.6-1.4); GLOM FILT RATE Estimated 40.1 mL/min (>60)
[2017-04-17 12:00] LABS: POTASSIUM 5.6 mmol/L (3.5-5.1)
== END | disposition home or self-care (01) ==
LOC: CLAB 10:32
PROVIDERS: Internal Medicine Nephrology
DX: N18.3 Chronic kidney disease, stage 3 (moderate) (principal)
CPT/HCPCS: 36415; 80048; 85025